=== PATIENT | male | born 2005 ===

== ENCOUNTER 2023-01-15 13:08 | Emergency (ER) | payer SELFPAY ==
[~2023-01-15] VITALS: Ht 175.3 cm; Wt 84.1 kg
[2023-01-15 13:14] VITALS: BP 106/49; PULSE 98; RESP 18; TEMP 97.8
== END 2023-01-15 13:23 | disposition left against medical advice (07) ==
LOC: EMS 13:10
DX: S01.21XA Laceration without foreign body of nose, initial encounter (principal); Z53.21 Procedure and treatment not carried out due to patient leaving prior to being seen by health care provider; X58.XXXA Exposure to other specified factors, initial encounter; Y93.89 Activity, other specified; Y92.89 Other specified places as the place of occurrence of the external cause; Y99.8 Other external cause status
CPT/HCPCS: 99281; Z7502